=== PATIENT | male | born 1975 | race Caucasian/White ===

== ENCOUNTER 2020-07-10 09:40 | Emergency (ER) | payer MEDICAID, SELFPAY ==
[~2020-07-10] VITALS: Ht 180.3 cm; Wt 83.2 kg
[2020-07-10 09:48] VITALS: BP 149/98
--- NOTE | 2020-07-10 10:02 | NUR ---
Note moe in EDM - 07/10/20 at 1004 by JAION ERP AT BS NOW. AT BS. PT IN MODERATE DISTRESS D/T PAIN, LOCATES PAIN UNDER HER R BREAST. REPORTS RECENT UTI, IS CURRENTLY ON ABX.
--- NOTE | 2020-07-10 10:12 | NUR ---
ERP WAS IN TO SEE PT. DISCHARGE ORDERS RC'VD.
--- NOTE | 2020-07-10 10:56 | NUR ---
Patient/Caregiver given discharge instructions and they have confirmed that they understand the instructions. Patient ambulatory with steady gait. NAD, all questions answered appropriately, denies additional needs at this time. No personal belongings left in room after discharge.
== END 2020-07-10 10:57 | disposition home or self-care (01) ==
LOC: ED 10:15
DX: F20.9 Schizophrenia, unspecified (principal); Z13.89 Encounter for screening for other disorder
CPT/HCPCS: 99281